=== PATIENT | female | born 1990 | race Caucasian/White ===

== ENCOUNTER 2019-02-22 18:22 | Emergency (ER) ==
[2019-02-22 18:29] VITALS: BMI 36.1
[2019-02-22] MEDS ORDERED: ZOFRAN 4 MG/2 ML IVP STA (18:38)
[2019-02-22] MEDS ORDERED: SODIUM CHLORIDE 1,000 ML IV STA (18:38)
[2019-02-22] MEDS ORDERED: DILAUDID 1 MG/ML SYRINGE IVP STA ×2 (18:38→20:31)
--- NOTE | 2019-02-22 18:41 | ED.PDOC ---
General ED Provider: Dr. ARTIS CONNER-ER Chief Complaint: Abdominal Pain Stated Complaint: im hurting Time Seen by Physician: 18:40 Mode of Arrival: Walk-In Information Source: Patient Exam Limitations: No limitations Primary Care Provider: MAYTE WHYTE Nursing and Triage Documentation Reviewed and Agree: Yes Does patient meet sepsis criteria?: No System Inflammatory Response Syndrome: Not Applicable Sepsis Protocol: For patient's 13 years and over: Temp is 96.8 and below OR 101 and greater Pulse >90 BPM Resp >20/minute Acutely Altered Mental Status Are patient's symptoms suggestive of a new infection, such as: -Pneumonia -Skin, Soft Tissue -Endocarditis -UTI -Bone, Joint Infection -Implantable Device -Acute Abdominal Infection -Wound Infection -Meningitis -Blood Stream Catheter Infection -Unknown GI Complaint Exam - Abdominal Pain Complaint/Exam Onset: Gradual Duration: 24 hrs Symptoms Are: Still present Timing: Constant Initial Severity: Mild Current Severity: Moderate Location of Pain: RUQ Character: Reports: Dull, Aching Alleviating: Reports: Vomiting Associated Signs and Symptoms: Reports: Nausea, Vomiting, Diarrhea Patient Rh Status: Unknown Abdominal Findings: Present: None Review of Systems - Review Of Systems Constitutional: Reports: No symptoms Eyes: Reports: No symptoms Ears, Nose, Mouth, Throat: Reports: No symptoms Respiratory: Reports: No symptoms Cardiac: Reports: No symptoms GI: Reports: Abdominal pain, Diarrhea, Nausea, Vomiting : Reports: No symptoms Musculoskeletal: Reports: No symptoms Skin: Reports: No symptoms Neurological: Reports: No symptoms Endocrine: Reports: No symptoms Hematologic/Lymphatic: Reports: No symptoms All Other Systems: Reviewed and Negative Past Medical History - Past Medical History Previously Healthy: Yes Endocrine: Reports: None Cardiovascular: Reports: None Respiratory: Reports: None Hematological: Reports: None Gastrointestinal: Reports: None Genitourinary: Reports: None Neuro/Psych: Reports: None Musculoskeletal: Reports: None Cancer: Reports: None Last Menstrual Period: 8/ - Surgical History General Surgical History: Reports: Unknown - Family History Family History: Reports: Unknown - Social History Smoking Status: Never smoker Hx Substance Use: No Alcohol Screening: None - Immunizations Tetanus Shot up to Date: Yes Physical Exam - Physical Exam Appearance: Well-appearing, No pain distress, Well-nourished Pain Distress: Mild Eyes: ELISEO ENT: Ears normal, Nose normal, Oropharynx normal Neck: Supple Respiratory: Airway patent, Breath sounds clear, Breath sounds equal, Respirations nonlabored Cardiovascular: RRR, Pulses normal, No rub, No murmur GI/: Soft, No masses, Bowel sounds normal, Tender Musculoskeletal: Normal strength Skin: Warm, Dry, Normal color Neurological: Sensation intact, Motor intact, Reflexes intact, Cranial nerves intact, Alert, Oriented Psychiatric: Affect appropriate Interpretation - Radiology Interpretation Radiology Interpretation By: Radiologist Radiology Results: Negative Exam Interpreted: CT Scan Critical Care Note - Critical Care Note Total Time (mins): 0 Course - Course Hematology/Chemistry: 02/22/19 18:41 02/22/19 18:41 Orders, Labs, Meds: Lab Review 02/22/19 02/22/19 02/22/19 18:41 18:41 18:41 WBC 7.82 RBC 4.63 Hgb 14.3 Hct 43.7 MCV 94.4 MCH 30.9 MCHC 32.7 RDW Coeff of Yulissa 12.0 Plt Count 288 Immature Gran % (Auto) 0.1 Neut % (Auto) 68.2 Lymph % (Auto) 22.3 [place] % (Auto) 7.9 Eos % (Auto) 1.0 Baso % (Auto) 0.5 Immature Gran # (Auto) 0.0 Neut # (Auto) 5.3 Lymph # (Auto) 1.7 [place] # (Auto) 0.6 Eos # (Auto) 0.1 Baso # (Auto) 0.0 ESR 18 Sodium 139.0 Potassium 3.12 L Chloride 105.3 Carbon Dioxide 24.2 Anion Gap 12.62 BUN 10.2 Creatinine 0.75 Estimated GFR (MDRD) 90.00 BUN/Creatinine Ratio 13.60 Glucose 89.0 Calcium 9.29 Total Bilirubin 0.56 AST 60.4 H ALT 51.8 H Alkaline Phosphatase 145.0 H Total Protein 8.19 Albumin 4.55 Globulin 3.64 Albumin/Globulin Ratio 1.25 Amylase 76.1 Lipase 40.8 Serum , Qual Negative Urine Color Urine Clarity Urine pH Ur Specific [place] Urine Protein Urine Glucose (UA) Urine Ketones Urine Blood Urine Nitrite Urine Bilirubin Urine Urobilinogen Ur Leukocyte Esterase Urine Microscopic RBC Urine Microscopic WBC Ur Squamous Epith Cells Urine Mucus 02/22/19 20:45 WBC RBC Hgb Hct MCV MCH MCHC RDW Coeff of [place]ulissa Plt Count Immature Gran % (Auto) Neut % (Auto) Lymph % (Auto) [place] % (Auto) Eos % (Auto) Baso % (Auto) Immature Gran # (Auto) Neut # (Auto) Lymph # (Auto) [place] # (Auto) Eos # (Auto) Baso # (Auto) ESR Sodium Potassium Chloride Carbon Dioxide Anion Gap BUN Creatinine Estimated GFR (MDRD) BUN/Creatinine Ratio Glucose Calcium Total Bilirubin AST ALT Alkaline Phosphatase Total Protein Albumin Globulin Albumin/Globulin Ratio Amylase Lipase Serum , Qual Urine Color Yellow Urine Clarity Clear Urine pH 5.5 Ur Specific [place] <=1.005 Urine Protein 1+ Urine Glucose (UA) Negative Urine Ketones 2+ Urine Blood Trace-intact Urine Nitrite Negative Urine Bilirubin Negative Urine Urobilinogen 0.2 Ur Leukocyte Esterase Negative Urine Microscopic RBC 0-2 Urine Microscopic WBC 2-5 Ur Squamous Epith Cells 2-5 Urine Mucus Trace Orders Category Date Time Status NPO REMINDER: IMAGING ONCE CARE 02/22/19 18:39 Completed ED IV/MEDIPORT/POWERPORT .ONCE EMERGENCY 02/22/19 18:37 Active AMYLASE Stat LAB 02/22/19 18:41 Completed CBC W/ AUTO DIFF Stat LAB 02/22/19 18:41 Completed COMPREHENSIVE METABOLIC PANEL Stat LAB 02/22/19 18:41 Completed ESR Stat LAB 02/22/19 18:41 Completed HEPATITIS PANEL, ACUTE Stat LAB 02/22/19 21:00 Received LIPASE Stat LAB 02/22/19 18:41 Completed SERUM Stat LAB 02/22/19 18:41 Completed URINALYSIS C & S IF INDICATED Stat LAB 02/22/19 20:45 Completed 0.9 % Sodium Chloride [Saline Flush] MEDS 02/22/19 18:37 Active 1 syr IVF PRN PRN Hydromorphone HCl [Dilaudid 1 mg/ml Syringe] MEDS 02/22/19 18:38 Discontinued 1 mg IVP ONCE STA Hydromorphone HCl [Dilaudid 1 mg/ml Syringe] MEDS 02/22/19 20:31 Discontinued 1 mg IVP ONCE STA Ondansetron HCl/Pf [Zofran 4 mg/2 ml] MEDS 02/22/19 18:38 Discontinued 4 mg IVP ONCE STA Promethazine HCl [Phenergan 25 mg/ml Vial] MEDS 02/22/19 21:37 Discontinued 25 mg .ROUTE .STK-MED ONE Promethazine HCl [Phenergan 25 mg/ml Vial] 25 mg MEDS 02/22/19 21:30 Discontinued 0.9 % Sodium Chloride [Sodium Chloride] 50 ml IV ONCE Sodium Chloride 0.9% [Sodium Chloride] 1,000 ml MEDS 02/22/19 18:38 Active IV 125 mls/hr Sodium Chloride 0.9% [Sodium Chloride] 1,000 ml MEDS 02/22/19 20:35 Active IV 150 mls/hr CT ABDOMEN/PELVIS W/WO CONTRAS Stat RADS 02/22/19 18:38 Completed Medications Generic Name Dose Route Start Last Admin Trade Name Freq PRN Reason Stop Dose Admin Sodium Chloride 1,000 mls @ 125 mls/hr 02/22/19 18:38 02/22/19 18:49 Sodium Chloride IV 02/23/19 02:37 125 mls/hr .Q8H STA Administration Sodium Chloride 1,000 mls @ 150 mls/hr 02/22/19 20:35 Sodium Chloride IV 02/23/19 03:14 .Q6H40M STA Sodium Chloride 1 syr 02/22/19 18:37 02/22/19 18:49 Saline Flush IVF 1 syr PRN PRN Administration To flush IV Discontinued Medications Generic Name Dose Route Start Last Admin Trade Name Freq PRN Reason Stop Dose Admin Hydromorphone HCl 1 mg 02/22/19 18:38 02/22/19 18:48 Dilaudid 1 Mg/Ml Syringe IVP 02/22/19 18:39 1 mg ONCE STA Administration Hydromorphone HCl 1 mg 02/22/19 20:31 02/22/19 20:38 Dilaudid 1 Mg/Ml Syringe IVP 02/22/19 20:32 1 mg ONCE STA Administration Promethazine HCl 25 mg/ Sodium 51 mls @ 75 mls/hr 02/22/19 21:30 02/22/19 21: 52 Chloride IV 02/22/19 22:10 75 mls/hr ONCE STA Administration Ondansetron HCl 4 mg 02/22/19 18:38 02/22/19 18:47 Zofran 4 Mg/2 Ml IVP 02/22/19 18:39 4 mg ONCE STA Administration Vital Signs: Temp Pulse Resp BP Pulse Ox 02/22/19 18:23 97.7 F 97 H 16 144/94 H 99 Departure - Departure Time of Disposition: 22:14 Disposition: TSF SHORT-TRM HOSP Discharge Problem: Abdominal pain Instructions: Acute Abdominal Pain (ED) Condition: Good Pt referred to PMD for follow-up: Yes IPMP verified?: No Allergies/Adverse Reactions: Allergies Penicillins Adverse Reaction (Verified 02/22/19 18:29) Sulfa (Sulfonamide Antibiotics) Adverse Reaction (Verified 02/22/19 18:29) Home Medications: Ambulatory Orders Cholecalciferol (Vitamin D3) [Vitamin D] 1,000 units PO DAILY 02/22/19 Levothyroxine Sodium [Synthroid] 12.5 mcg PO DAILY 02/22/19 Omeprazole 20 mg PO DAILY 02/22/19 Transfer Form Completed: Yes Disposition Discussed With: Patient, Family
--- NOTE | 2019-02-22 19:49 | CT ---
EXAM: CTA abdomen pelvis with and without contrast HISTORY: Right-sided pain COMPARISON: CT scan chest abdomen pelvis 08/11/2013 FINDINGS: Contiguous axial images obtained through the abdomen pelvis both before after uneventful a dministration of intravenous contrast utilizing 3-mm collimation. Sagittal and coronal reconstructio ns were imaged and reviewed... The visualized lung bases are clear. There has been prior cholecyste ctomy. Liver, pancreas, spleen and adrenal glands have normal enhanced CT appearance. The kidneys e xcrete contrast in a normal fashion .. There are prominent air and fluid filled loops of small bowel which may be related to ileus versus gastroenteritis. There is a normal appendix. There is a 1.8 c m left adnexal cyst. There is no free fluid. Bone windows shows no evidence of lytic or blastic les ions. IMPRESSION: Prominent small bowel which may be related to ileus versus gastroenteritis. Normal appendix. Small left adnexal cyst.
[2019-02-22] MEDS ORDERED: PHENERGAN 25 MG/ML VIAL 25 MG in SODIUM CHLORIDE 50 ML IV STA (21:30)
[2019-02-22] MEDS ORDERED: PHENERGAN 25 MG/ML VIAL ONE (21:37)
[2019-02-22] MEDS: SODIUM CHLORIDE 1,000 ML IV STA (22:22)
[2019-02-22 22:31] VITALS: BP 123/71; TEMP 98
[2019-02-27] MEDS: SODIUM CHLORIDE 1,000 ML IV STA (06:54)
== END 2019-02-22 22:38 | disposition short-term general hospital (02) ==
LOC: ED 18:22
DX: R10.11 Right upper quadrant pain (principal); R11.2 Nausea with vomiting, unspecified; R19.7 Diarrhea, unspecified
CPT/HCPCS: 36415; 80053; 80074; 81001; 82150; 83690; 84703; 85025; 85651; 96361; 96365; 96375; 96376; 99285

== ENCOUNTER 2019-02-22 22:46 | Outpatient (CLI) ==
[2019-02-22 18:29] VITALS: BMI 36.1
== END 2019-02-22 22:47 | disposition home or self-care (01) ==
LOC: AMBL 22:46
PROVIDERS: ATTEND Family Medicine
DX: R10.9 Unspecified abdominal pain (principal); R11.2 Nausea with vomiting, unspecified; R19.7 Diarrhea, unspecified